=== PATIENT | male | born 1990 | race Caucasian/White ===

== ENCOUNTER 2020-04-29 02:34 | Emergency (ER) | payer SELFPAY ==
[2020-04-29] MEDS ORDERED: methylPREDNISolone Sodium Succinate 125 MG/2 ML SDV IVPUSH ONE (02:52)
[2020-04-29] MEDS ORDERED: diphenhydrAMINE 50 MG/ML SDV IVPUSH ONE (02:52)
--- NOTE | 2020-04-29 02:58 | EDM.PDOC ---
ED HPI GENERAL MEDICAL PROBLEM - General Chief Complaint: Eye Problems Stated Complaint: ALLERGY/INFECTION IN BOTH EYES Time Seen by Provider: 04/29/20 02:47 Source of Information: Reports: Patient History Limitations: Reports: No Limitations - History of Present Illness INITIAL COMMENTS - FREE TEXT/NARRATIVE: Patient is a 29-year-old male presents today for itchiness to his arm and swelling to his eyes. Patient works at a wind [employer] and occasionally area on his arms or causes a rash and itchiness. Patient dates today that material got into his face and cause eye redness and swelling around his eyes. Patient denies any difficulty breathing or swallowing. Patient denies any lip swelling. Patient also reports itchiness on his arms that has no rash on his trunk. Pa melani denies any other symptoms. Right Eye Pain Score (Numeric/FACES): 7 - Related Data Allergies Allergy/AdvReac Type Severity Reaction Status Date / Time No Known Allergies Allergy Verified 04/29/20 02:52 Home Meds: Home Meds cephALEXin [Keflex] 500 mg PO Q6HR 10 Days #40 cap 04/29/20 [Rx] predniSONE [Prednisone] 40 mg PO DAILY 4 Days #8 tablet 04/29/20 [Rx] ED ROS GENERAL - Review of Systems Review Of Systems: See Below Constitutional: Reports: No Symptoms HEENT: Reports: Eye Discharge Respiratory: Reports: No Symptoms Cardiovascular: Reports: No Symptoms Endocrine: Reports: No Symptoms GI/Abdominal: Reports: No Symptoms : Reports: No Symptoms Musculoskeletal: Reports: No Symptoms Skin: Reports: Pruritis, Rash Neurological: Reports: No Symptoms Psychiatric: Reports: No Symptoms Hematologic/Lymphatic: Reports: No Symptoms Immunologic: Reports: No Symptoms ED EXAM GENERAL W FULL EYE - Physical Exam Exam: See Below Exam Limited By: No Limitations General Appearance: Alert, WD/WN Eye Exam: Bilateral Eye: EOMI, Periorbital Changes, PERRL Eyelids: Bilateral: Edema Extraocular Movements: Bilateral: Intact Pupillary Size: Bilateral: 4 mm Pupillary Reaction: Bilateral: Brisk Throat/Mouth: Normal Lips, Normal Oropharynx Head: Atraumatic Respiratory/Chest: No Respiratory Distress, Lungs Clear, Normal Breath Sounds Cardiovascular: Normal Peripheral Pulses, Regular Rate, Rhythm GI/Abdominal: Normal Bowel Sounds, Soft, Non-Tender Extremities: Normal Inspection, Normal Range of Motion Neurological: Alert, Oriented, CN II-XII Intact, Normal Cognition, Normal Gait Course - Vital Signs Last Recorded V/S: Last Vital Signs Temp 96.6 F L 04/29/20 02:48 Pulse 68 04/29/20 04:30 Resp 18 04/29/20 04:30 BP 112/53 L 04/29/20 04:30 Pulse Ox 97 04/29/20 04:30 - Orders/Labs/Meds Meds: Medications Discontinued Medications Generic Name Dose Route Start Last Admin Trade Name Gary PRN Reason Stop Dose Admin Diphenhydramine HCl 25 mg 04/29/20 02:52 04/29/20 03:03 Benadryl IVPUSH 04/29/20 02:53 25 mg ONETIME ONE Administration Methylprednisolone Sodium Succinate 125 mg 04/29/20 02:52 04/29/20 03:04 Solu-Medrol IVPUSH 04/29/20 02:53 125 mg ONETIME ONE Administration - Re-Assessments/Exams Free Text/Narrative Re-Assessment/Exam: 04/29/20 04:44 Patient eyes are feeling better as well as itchiness. Patient was given IV Benadryl. Patient still very sleepy will have patient to rest and wake up before discharging home. Departure - Departure Time of Disposition: 06:17 Disposition: Home, Self-Care 01 Condition: Good Clinical Impression: Impetigo, Allergic reaction - Discharge Information *PRESCRIPTION DRUG MONITORING PROGRAM REVIEWED*: Not Applicable *COPY OF PRESCRIPTION DRUG MONITORING REPORT IN PATIENT DOUGLAS: Not Applicable Prescriptions: cephALEXin [Keflex] 500 mg PO Q6HR 10 Days #40 cap predniSONE [Prednisone] 40 mg PO DAILY 4 Days #8 tablet Instructions: Impetigo, Adult Referrals: PCP,None [Primary Care Provider] - Forms: ED Department Discharge Additional Instructions: The following information is given to patients seen in the emergency department who are being discharged to home. This information is to outline your options for follow-up care. We provide all patients seen in our emergency department with a follow-up referral. The need for follow-up, as well as the timing and circumstances, are variable depending upon the specifics of your emergency department visit. If you don't have a primary care physician on staff, we will provide you with a referral. We always advise you to contact your personal physician following an emergency department visit to inform them of the circumstance of the visit and for follow-up with them and/or the need for any referrals to a consulting specialist. The emergency department will also refer you to a specialist when appropriate. This referral assures that you have the opportunity for follow-up care with a specialist. All of these measure are taken in an effort to provide you with optimal care, which includes your follow-up. Under all circumstances we always encourage you to contact your private physician who remains a resource for coordinating your care. When calling for follow-up care, please make the office aware that this follow-up is from your recent emergency room visit. If for any reason you are refused follow-up, please contact the [facility] Emergency Department at and asked to speak to the emergency department charge nurse. Please follow up with your primary care physician. If you do not have a primary care physician, see below: [facility] [address] [place] [id number] [facility] [address] [place] [id number] Follow-up with your primary care physician. If you have feelings of toe swelling increased itchiness please return to the ED. Please take the steroids as prescribed and also antibiotics. Sepsis Event Note (ED) - Evaluation Sepsis Screening Result: No Definite Risk - Focused Exam Vital Signs: Vital Signs Temp Pulse Resp BP Pulse Ox 04/29/20 04:30 68 18 112/53 L 97 04/29/20 02:48 96.6 F L 70 16 112/74 97 - Assessment/Plan Assessment:: Patient is a 29-year-old male presents today for rash to his extremities upper and to his face. Likely looks like a reaction to material he came in contact today at work. Patient has no difficulty breathing or swallowing. Will give steroids Benadryl and reassess. Patient also has a rash that looks to be impetigo rash will likely prescribe antibiotic as well.
== END 2020-04-29 06:20 | disposition home or self-care (01) ==
LOC: MW.ED 02:34
DX: T78.40XA Allergy, unspecified, initial encounter (principal); L01.00 Impetigo, unspecified
CPT/HCPCS: 96374; 96375; 99283; J1200; J2930; 99282